=== PATIENT | male | born 1990 | race Caucasian/White ===

== ENCOUNTER 2024-05-19 14:52 | Emergency (ER) | payer BC ==
[2024-05-19 15:31] VITALS: BP 138/86; PULSE 82
[2024-05-19] MEDS: Lidocaine 1% with EPINEPHrine 1:100,000 20 ML MDV INJECT ONE (15:59)
== END 2024-05-19 16:20 | disposition home or self-care (01) ==
LOC: CC.ED 14:52
DX: S01.81XA Laceration without foreign body of other part of head, initial encounter (principal); S01.512A Laceration without foreign body of oral cavity, initial encounter; Z88.0 Allergy status to penicillin; Z79.899 Other long term (current) drug therapy; W26.8XXA Contact with other sharp object(s), not elsewhere classified, initial encounter
CPT/HCPCS: 12015; 70110; 99283; J3490